=== PATIENT | female | born 2000 | race Hispanic/Latino ===

== ENCOUNTER 2023-11-06 09:16 | Emergency (ER) | payer MEDICAID ==
[~2023-11-06] VITALS: Ht 170.2 cm; Wt 52.2 kg
[~2023-11-06 09:16] MED LIST: FERR-82 PO; PRENATAL VITAMIN PO
[2023-11-06 09:45] LABS: BASOPHILS # (AUTO) 0.04 K/uL (0.00-0.20); BASOPHILS % (AUTO) 0.7 % (0.0-5.0); EOSINOPHILS # (AUTO) 0.17 K/uL (0.00-0.70); EOSINOPHILS % (AUTO) 2.9 % (0.0-8.0); HEMATOCRIT 42.9 % (36-48); IMMATURE GRANULOCYTE ABSOLUTE 0.01 K/uL (0-1); LYMPHOCYTES # (AUTO) 2.2 K/uL (1.0-4.8); LYMPHOCYTES % (AUTO) 36.3 % (21.0-51.0); MEAN CORPUSCULAR HEMOGLOBIN 29.1 pg (27.0-33.0); MEAN CORPUSCULAR HGB CONC 33.3 g/dL (32.0-36.0); MEAN CORPUSCULAR VOLUME 87.2 fL (79-99); MONOCYTES # (AUTO) 0.5 K/uL (0.1-1.0); MONOCYTES % (AUTO) 7.9 % (3.0-13.0); NEUTROPHILS # (AUTO) 3.1 K/uL (1.8-7.7); PLATELET COUNT (AUTO) 219 K/uL (130-400); RED BLOOD CELL COUNT(AUTO) 4.92 MIL/uL (4.00-5.50); RED CELL DISTRIBUTION WIDTH 13.4 % (11.0-15.5)
[2023-11-06 10:02] LABS: CREATININE 0.9 mg/dL (0.5-1.0); POTASSIUM 3.8 mmol/L (3.5-5.1)
[2023-11-06 10:04] LABS: INR 0.95 (0.85-1.15); PROTHROMBIN TIME 11.2 SEC (9.6-11.6)
[2023-11-06 10:06] LABS: ALBUMIN 4.1 g/dL (3.5-5.0); BILIRUBIN,TOTAL 0.4 mg/dL (0.2-1.0); TOTAL PROTEIN, SERUM 7.7 g/dL (6.0-8.3)
[2023-11-06 10:34] VITALS: BP 117/59; PULSE 81; RESP 16; O2SAT 99
[2023-11-06 10:43] LABS: BILIRUBIN,URINE NEGATIVE (NEGATIVE); COLOR,URINE LIGHT-YELLOW (YELLOW); GLUCOSE, URINE (UA) NEGATIVE (NEGATIVE); KETONES,URINE NEGATIVE (NEGATIVE); LEUKOCYTE ESTERASE ,URINE 75 Leu/uL (NEGATIVE); NITRATE,URINE NEGATIVE (NEGATIVE); PH,URINE 5.5 (5.0-8.0); PROTEIN,URINE NEGATIVE (NEGATIVE); UROBILINOGEN,URINE 0.2 mg/dL (0.2-1.0)
[2023-11-06 10:46] LABS: ADD UA MICROSCOPIC YES; APPEARANCE,URINE HAZY (CLEAR)
[2023-11-06 10:48] LABS: BACTERIA,URINE RARE /HPF (None Seen); MUCUS,URINE RARE LPF (None Seen); SQUAMOUS EPITHELIAL CELL,UR MANY /HPF (0-2)
[2023-11-06 10:55] LABS: HCG,QUALITATIVE URINE NEGATIVE (NEGATIVE)
[2023-11-06] MEDS: KETOROLAC 30MG VIAL (30MG/ML) IVP ONE (11:44)
[2023-11-06] MEDS: PANTOPRAZOLE 40 MG/VIAL IVP ONE (11:44)
[2023-11-06] MEDS ORDERED: NAPR375T6 PO (11:50)
== END 2023-11-06 12:00 | disposition home or self-care (01) ==
LOC: EDH 09:16
DX: R07.1 Chest pain on breathing (principal); Z60.2 Problems related to living alone
CPT/HCPCS: 99285; 71045; 83735; 84484; 80053; 85025; 85610; 87088; 81001; 81025; 36415; 93005; S0164; C9113; J1885

== ENCOUNTER → 2024-09-19 | Emergency (ER) | payer MEDICAID, OTHER ==
[~2024-09-19] VITALS: Ht 170.2 cm; Wt 56.7 kg
[~2024-09-19] MED LIST changes: +NAPR-1505 PO
[2024-09-19 07:56] VITALS: BP 118/73; PULSE 79; RESP 16; TEMP 98.3; O2SAT 100
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
--- NOTE | 2024-09-19 09:35 | HMCIMG ---
CT HEAD/BRAIN W/O CONTRAST HISTORY: Headaches COMPARISON: None TECHNIQUE: Multiple sequential axial images of the head were obtained from the base of the skull through vertex. Patient was not given contrast through intravenous route. FINDINGS: The ventricles and extraventricular CSF spaces are nondilated for patient's age. There is no midline shift, mass effect or herniation. No acute intracranial bleed is seen. Visualized portion of the paranasal sinuses are grossly within normal limits. IMPRESSION: 1. No acute intracranial bleed is seen. CT was performed with one or more following dose reduction techniques: automated exposure control, adjustment of the mA and kv according to patient's size, or use of a iterative reconstruction technique.
[2024-09-19] MEDS: acetaMINOPHEN 325 MG TAB PO ONE (09:39)
[2024-09-19] MEDS: ondanSETRON 4MG INJ IVP ONE (09:43)
[2024-09-19] MEDS: ondanSETRON 4MG TABLET PO ONE (10:32)
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
--- NOTE | 2024-09-19 10:56 | NUR ---
PT STABLE NO DISTRESS, VITALS WNL NO C/O PAIN , NO N/V NOW. PT STATES SHE IS READY TO GO HOME, INSTRUCTIONS GIVEN NO NEW RX FOR NOW, SEE PCP IN 2-3 DAYS PT VERBALIZED UNDERSTANDING. PT WALKED OUT TO [employer] DROVE HERSELF HOME.
== END ==
LOC: EDH 07:45
DX: R51.9 Headache, unspecified (principal); R11.2 Nausea with vomiting, unspecified; F41.9 Anxiety disorder, unspecified; V49.9XXA Car occupant (driver) (passenger) injured in unspecified traffic accident, initial encounter; Y93.89 Activity, other specified; Y92.410 Unspecified street and highway as the place of occurrence of the external cause; Y99.8 Other external cause status
CPT/HCPCS: 70450; 81025; 99284; J2405; Q0162